=== PATIENT | male | born 1970 | race Two or more races ===

== ENCOUNTER 2019-03-10 12:51 | Emergency (ER) | payer MEDICAID, OTHER ==
[~2019-03-10] VITALS: Ht 172.7 cm; Wt 90.7 kg
--- NOTE | 2019-03-10 13:19 | NUR ---
URINE COLLECTED AND SENT TO LAB
--- NOTE | 2019-03-10 13:20 | NUR ---
patient came in the ER c/o back pain, on room air, breathing evenly and unlabored. Ambulatory with steady gait, kept comfortable, will continue to monitor accordingly.
[2019-03-10 13:42] LABS: BILIRUBIN,URINE Negative (NEGATIVE); BLOOD, URINE Negative Ery/uL (NEGATIVE); COLOR,URINE Yellow (YELLOW); KETONES,URINE Trace (NEGATIVE); LEUKOCYTE ESTERASE ,URINE Negative (NEGATIVE); NITRITE, URINE Negative (NEGATIVE); PROTEIN,URINE Trace mg/dl (NEGATIVE); UGLUCOSE Negative (NEGATIVE); UROBILINOGEN,URINE 0.2 EU/dL (0.2)
[2019-03-10 13:44] LABS: APPEARANCE,URINE Slightly Hazy (CLEAR)
[2019-03-10 13:49] LABS: BACTERIA,URINE None seen /HPF (None Seen); MUCUS,URINE Few /LPF (None Seen); SQUAMOUS EPITHELIAL CELL,UR Few /HPF (None Seen); WBC,URINE 0-2 /HPF (0-3)
[2019-03-10 15:09] VITALS: BP 135/71
--- NOTE | 2019-03-10 15:10 | NUR ---
Patient discharged to home in stable condition. Written and verbal after care instructions given. Patient verbalizes understanding of instruction.
== END 2019-03-10 15:10 | disposition home or self-care (01) ==
LOC: ER 12:51
DX: M54.5 Low back pain (principal); Z60.2 Problems related to living alone
CPT/HCPCS: 81000-TC